=== PATIENT | female | born 1930 | race Caucasian/White ===

== ENCOUNTER 2021-08-08 11:07 | Emergency (ER) | payer MEDICARE, BC ==
[2021-08-08 12:04] LABS: #Eosinphils 0.2 thou/uL (0.0-0.7); #Lymphocytes 2.4 thou/uL (1.20-3.40); #Monocytes 0.4 thou/uL (0.11-0.59); %Basophils 0.6 % (0.0-1.0); %Lymphocytes 33.8 % (21.0-51.0); %Monocytes 5.9 % (0.0-10.0); %Neutrophils 56.8 % (42.0-75.0); Hemoglobin 14.6 g/dL (12.0-16.0); Mean Corpuscular HGB CONC 32.1 g/dL (32.0-36.0); Mean Corpuscular Hemoglobin 31.2 pg (27.0-31.0); Mean Corpuscular Volume 97.1 fL (78.0-98.0); Mean Platelet Volume 8.7 fL (7.4-10.4); Platelet Count 192 thou/uL (130-400); RBC Distribution Width 11.2 % (11.5-14.5); Red Blood Cell (RBC) Count 4.69 mill/uL (4.20-5.40)
[2021-08-08 12:20] LABS: Anion Gap 13 mmol/L (10-20); BUN (Urea Nitrogen) 24 mg/dL (9.8-20.1); Carbon Dioxide 27 mmol/L (23-31); Chloride 102 mmol/L (98-107); Sodium 138 mmol/L (136-145)
[2021-08-08 12:21] LABS: ALT (SGPT) 17 U/L (8-55); AST (SGOT) 20 U/L (5-34); Alkaline Phosphatase 71 U/L (40-110); Bilirubin, Total 0.7 mg/dL (0.2-1.2); Calc. Creatinine Clearance 0 mL/min (70-130); Calcium 9.5 mg/dL (7.8-10.44); Globulin 3.2 g/dL (2.4-3.5); Glucose 97 mg/dL (83-110); Protein, Total 7.2 g/dL (5.8-8.1)
[2021-08-08] MEDS ORDERED: Diltiazem 125 MG/25 ML ONE (12:50)
== END 2021-08-08 14:15 | disposition home or self-care (01) ==
LOC: ERS 11:07
DX: I48.92 Unspecified atrial flutter (principal); I10 Essential (primary) hypertension; Z79.899 Other long term (current) drug therapy
CPT/HCPCS: 71045; 80053; 84484; 85025; 93005; 96374